=== PATIENT | male | born 1970 | race Caucasian/White ===

== ENCOUNTER 2016-06-21 21:52 | Emergency (ER) | payer OTHER ==
[~2016-06-21] VITALS: Ht 167.6 cm; Wt 88.6 kg
[2016-06-21 21:55] VITALS: BP 146/94; PULSE 98; O2SAT 99
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
[2016-06-21] MEDS ORDERED: oxyCODONE-Acetamin 5-325 mg Tablet PO ONE (22:25)
[2016-06-21] MEDS ORDERED: _oxyCODONE/APAP 5-325 mg Tablet PO PRN (22:25)
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
== END 2016-06-21 23:17 | disposition home or self-care (01) ==
LOC: SED 21:52
DX: S13.4XXA Sprain of ligaments of cervical spine, initial encounter (principal); S16.1XXA Strain of muscle, fascia and tendon at neck level, initial encounter; V43.52XA Car driver injured in collision with other type car in traffic accident, initial encounter; Y93.89 Activity, other specified; Y92.410 Unspecified street and highway as the place of occurrence of the external cause; Y99.8 Other external cause status; M54.5 Low back pain

== ENCOUNTER 2016-07-09 22:57 | Emergency (ER) | payer OTHER ==
[~2016-07-09] VITALS: Ht 165.1 cm; Wt 190.0 kg
[2016-07-09 22:59] VITALS: BP 144/92; PULSE 94; RESP 16; O2SAT 100
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
[2016-07-10] MEDS ORDERED: _oxyCODONE/APAP 5-325 mg Tablet PO PRN (00:20)
[2016-07-10 00:54] VITALS: BP 138/88; PULSE 90; RESP 16; O2SAT 100
== END 2016-07-10 00:56 | disposition home or self-care (01) ==
LOC: SED 22:57
DX: S16.1XXD Strain of muscle, fascia and tendon at neck level, subsequent encounter (principal); S13.4XXD Sprain of ligaments of cervical spine, subsequent encounter; V89.2XXD Person injured in unspecified motor-vehicle accident, traffic, subsequent encounter; Y93.89 Activity, other specified; Y92.89 Other specified places as the place of occurrence of the external cause; Y99.8 Other external cause status
CPT/HCPCS: 96372; 99283; J1885

== ENCOUNTER 2016-09-21 21:21 | Emergency (ER) | payer OTHER ==
[~2016-09-21] VITALS: Ht 165.1 cm; Wt 86.4 kg
[2016-09-21 21:25] VITALS: BP 142/90; PULSE 106; RESP 18; O2SAT 98
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
[2016-09-21] MEDS ORDERED: Dexamethasone 20 mg/2 mL Oral Solution PO ONE (22:20)
[2016-09-21] MEDS ORDERED: IBUP-1827 PO (22:26)
[2016-09-21] MEDS ORDERED: METH-313 PO (22:26)
[2016-09-21 22:43] VITALS: BP 140/79; PULSE 89; O2SAT 98
[2016-09-21 22:49] VITALS: BP 140/79; PULSE 89; O2SAT 98
== END 2016-09-21 22:51 | disposition home or self-care (01) ==
LOC: SED 21:21
DX: M54.31 Sciatica, right side (principal); M54.12 Radiculopathy, cervical region
CPT/HCPCS: 96372; 99283; J1885